=== PATIENT | male | born 1985 | race Caucasian/White ===

== ENCOUNTER 2021-01-31 03:14 | Emergency (ER) | payer OTHER ==
[2021-01-31 03:28] VITALS: BP 131/86; PULSE 78
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
== END 2021-01-31 03:50 ==
LOC: JD.ED 03:14
DX: F10.129 Alcohol abuse with intoxication, unspecified (principal)
CPT/HCPCS: 99282; 99284